=== PATIENT | female | born 1990 | race Caucasian/White ===

== ENCOUNTER 2018-02-16 13:58 | Observation (INO) | payer OTHER ==
[2018-02-16 14:15] VITALS: BP 106/59; PULSE 80
== END 2018-02-16 14:55 | disposition home or self-care (01) ==
LOC: OB 13:58
PROVIDERS: ADMIT Family Medicine; ATTEND Family Medicine
DX: Z34.82 Encounter for supervision of other normal pregnancy, second trimester (principal)
CPT/HCPCS: G0378

== ENCOUNTER 2018-03-20 13:00 | Observation (INO) | payer OTHER ==
--- NOTE | 2018-03-20 14:27 | XRAY ---
Indication: Evaluate LATASHA. Limited OB ultrasound performed to evaluate LATASHA. Single viable intrauterine with heart rate 123 BPM. Four-quadrant LATASHA is 17.9 cm, previously 15.4 cm on January 05, 2018.
[2018-03-20 15:34] VITALS: BP 116/58; PULSE 93
== END 2018-03-20 15:30 | disposition home or self-care (01) ==
LOC: OB 13:00
PROVIDERS: ADMIT Family Medicine; ATTEND Family Medicine
DX: Z34.83 Encounter for supervision of other normal pregnancy, third trimester (principal)
CPT/HCPCS: 76815; G0378; 59025

== ENCOUNTER 2018-04-07 06:06 | Observation (INO) | payer OTHER ==
[2018-04-07 11:53] VITALS: BP 102/64; PULSE 104
--- NOTE | 2018-04-07 12:13 | XRAY ---
Indication: Size greater than dates. 2-dimensional OB ultrasound performed. Comparison: January 05, 2018. Again single viable intrauterine now in cephalic presentation. heart rate 123 bpm. Normal three-vessel cord and cord insertion previously documented. Visualized stomach and bladder appear unremarkable. Again anterior fundal placenta without abruption/previa. BPD measures 8.69 cm corresponding to 35 weeks 1 day. HC measures 30.66 cm corresponding to 34 weeks 1 day. AC measures 30.45 cm corresponding to 34 weeks 3 days. FL measures 6.63 cm corresponding to 34 weeks 1 day. Estimated weight 5 lbs. 5 oz., +/-13 ounces. Approximately 63 percentile. LATASHA is 17.1 cm. Impression: Again single viable intrauterine with mean gestational age 34 weeks 3 days. Normal progression of . No new/acute findings.
== END 2018-04-07 12:40 | disposition home or self-care (01) ==
LOC: EDSTATUS 11:08 → OB 11:09
PROVIDERS: ADMIT Family Medicine; ATTEND Family Medicine
DX: Z34.83 Encounter for supervision of other normal pregnancy, third trimester (principal)
CPT/HCPCS: 76805; G0378; 59025

== ENCOUNTER 2018-05-05 14:12 | Observation (INO) | payer OTHER ==
[2018-05-05 14:53] LABS: Hematocrit 40.8 % (35-47); Hemoglobin 13.9 gm/dl (12.0-16.0); Mean Cell Volume 91.9 fl (78-100); Mean Corpuscular Hemoglobin 31.3 pg (26-32); Mean Corpuscular Hgb Concent. 34.1 g/dl (32-36); Mean Platelet Volume 12.9 fl (6-9.5); Platelet Count 183 K/mm3 (150-450); Red Blood Count 4.44 M/mm3 (4.1-5.4); Red Cell Distribution Width 13.4 % (11.5-14.0); White Blood Count 12.1 K/mm3 (4.0-10.5)
[2018-05-05 15:05] LABS: Granulocyte Absolute (ANC) 9.13 (1.4-6.9)
[2018-05-05 15:05] LABS: ALBUMIN 3.5 g/dL (3.5-5.0); ALKALINE PHOSPHATASE 186 U/L (38-126); ANION GAP 12.3 MEQ/L (5-15); BLOOD UREA NITROGEN 10 mg/dL (7-17); CHLORIDE 108 mmol/L (98-107); Calcium 9.4 mg/dL (8.4-10.2); Carbon Dioxide 21 mmol/L (22-30); Creatinine 1 0.41 mg/dL (0.52-1.04); Glucose 84 mg/dL (74-106); Potassium 3.8 mmol/L (3.5-5.1); SGOT/AST 22 U/L (14-36); SGPT/ALT 20 U/L (0-35); SODIUM 137 mmol/L (137-145); Total Protein 6.8 g/dL (6.3-8.2)
[2018-05-05 15:08] VITALS: BP 119/61; PULSE 98
[2018-05-05 16:31] LABS: BAND 2 % (0.0-2.0); Lymphocytes 15 % (24-44); Monocyte 3 % (0.0-12.0); Neutrophils 80 % (36.0-66.0); Platelet Estimate NORMAL (NORMAL); Total Cells Counted 100
== END 2018-05-05 15:55 | disposition home or self-care (01) ==
LOC: OB 14:12
PROVIDERS: ADMIT Family Medicine; ATTEND Family Medicine
DX: Z34.83 Encounter for supervision of other normal pregnancy, third trimester (principal)
CPT/HCPCS: 36415; 59025; 80053; 81003; 84550; 85025; G0378

== ENCOUNTER 2018-05-14 18:27 | Observation (INO) | payer OTHER ==
[2018-05-14] MEDS ORDERED: BRETHINE 1 MG/ML SQ PRN (18:36)
[2018-05-14 18:54] LABS: BASOPHIL % 0.2 % (0.0-0.4); Basophil (Absolute #) 0.02 (0-0.4); Eosinophil % 3.3 % (0.00-5.0); Eosinophil (Absolute #) 0.34 (0-0.5); Granulocyte Absolute (ANC) 7.84 (1.4-6.9); Granulocytes % 75.1 % (36.0-66.0); Hematocrit 38.3 % (35-47); Lymphocyte (Absolute #) 1.51 (1.0-4.6); Lymphocytes % 14.5 % (24.0-44.0); Mean Cell Volume 93.2 fl (78-100); Mean Corpuscular Hemoglobin 31.6 pg (26-32); Mean Corpuscular Hgb Concent. 33.9 g/dl (32-36); Mean Platelet Volume 13.2 fl (6-9.5); Monocyte (Absolute #) 0.72 (0.0-1.3); Monocytes % 6.9 % (0.0-12.0); Platelet Count 159 K/mm3 (150-450); Red Blood Count 4.11 M/mm3 (4.1-5.4); Red Cell Distribution Width 13.4 % (11.5-14.0); White Blood Count 10.4 K/mm3 (4.0-10.5)
[2018-05-14] MEDS ORDERED: PITOCIN 30 UNITS/ LR 500 ML 500 ML IV SCH (19:00)
[2018-05-14 21:54] LABS: Amphetamine,Urine NEGATIVE (NEGATIVE); Barbiturate,Urine NEGATIVE (NEGATIVE); Benzodiazepine,Urine NEGATIVE (NEGATIVE); Cocaine,Urine NEGATIVE (NEGATIVE); Methadone,Urine NEGATIVE (NEGATIVE); Opiate,Urine NEGATIVE (NEGATIVE); PCP,Urine NEGATIVE (NEGATIVE); THC,Urine NEGATIVE (NEGATIVE)
[2018-05-14] MEDS ORDERED: Cervidil 10 MG VAG SCH (22:00)
[2018-05-15] MEDS ORDERED: OMNIPEN 2 GM / NACL 100ML 100 ML IV ONE (08:08)
[2018-05-15] MEDS ORDERED: Lactated Ringers 1,000 ML IV SCH (08:30)
[2018-05-15] MEDS ORDERED: PITOCIN 30 UNITS/ LR 500 ML 500 ML IV SCH ×2 (08:30)
[2018-05-15] MEDS: OMNIPEN 1GM / NaCl 100ML 100 ML IV SCH ×2 (12:03→16:02)
[2018-05-15 20:52] VITALS: BP 108/59; PULSE 86
== END 2018-05-15 20:20 | disposition home or self-care (01) ==
LOC: OB 18:27
PROVIDERS: ADMIT Family Medicine; ATTEND Family Medicine
DX: O61.0 Failed medical induction of labor (principal); Z3A.39 39 weeks gestation of pregnancy
CPT/HCPCS: 36415; 80307; 85025; G0378; J0290; J2590

== ENCOUNTER 2018-05-18 13:07 | Inpatient (IN) | payer OTHER ==
[2018-05-18] MEDS ORDERED: OMNIPEN 2 GM / NACL 100ML 100 ML IV ONE (14:39)
[2018-05-18] MEDS ORDERED: PITOCIN 30 UNITS/ LR 500 ML 500 ML IV SCH ×2 (15:00→20:00)
[2018-05-18 15:07] LABS: BASOPHIL % 0.2 % (0.0-0.4); Basophil (Absolute #) 0.02 (0-0.4); Eosinophil % 4.5 % (0.00-5.0); Eosinophil (Absolute #) 0.47 (0-0.5); Granulocytes % 75.9 % (36.0-66.0); Hematocrit 38.9 % (35-47); Hemoglobin 13.3 gm/dl (12.0-16.0); Lymphocytes % 13.3 % (24.0-44.0); Mean Cell Volume 92.8 fl (78-100); Mean Corpuscular Hemoglobin 31.7 pg (26-32); Mean Corpuscular Hgb Concent. 34.2 g/dl (32-36); Mean Platelet Volume 13.6 fl (6-9.5); Monocyte (Absolute #) 0.64 (0.0-1.3); Monocytes % 6.1 % (0.0-12.0); Platelet Count 155 K/mm3 (150-450); Red Blood Count 4.19 M/mm3 (4.1-5.4); Red Cell Distribution Width 13.6 % (11.5-14.0); White Blood Count 10.5 K/mm3 (4.0-10.5)
[2018-05-18 15:23] LABS: Amphetamine,Urine NEGATIVE (NEGATIVE); Barbiturate,Urine NEGATIVE (NEGATIVE); Benzodiazepine,Urine NEGATIVE (NEGATIVE); Cocaine,Urine NEGATIVE (NEGATIVE); Methadone,Urine NEGATIVE (NEGATIVE); Opiate,Urine NEGATIVE (NEGATIVE); PCP,Urine NEGATIVE (NEGATIVE); THC,Urine NEGATIVE (NEGATIVE)
[2018-05-18 15:34] LABS: ALBUMIN 3.2 g/dL (3.5-5.0); ALKALINE PHOSPHATASE 178 U/L (38-126); ANION GAP 12.5 MEQ/L (5-15); BLOOD UREA NITROGEN 8 mg/dL (7-17); CHLORIDE 109 mmol/L (98-107); Calcium 8.7 mg/dL (8.4-10.2); Carbon Dioxide 21 mmol/L (22-30); Creatinine 1 0.39 mg/dL (0.52-1.04); Glucose 115 mg/dL (74-106); SGOT/AST 19 U/L (14-36); SGPT/ALT 14 U/L (0-35); SODIUM 139 mmol/L (137-145); Total Protein 6.5 g/dL (6.3-8.2)
[2018-05-18] MEDS: Lactated Ringers 1,000 ML IV SCH ×2 (15:44→23:57)
[2018-05-18] MEDS ORDERED: BRETHINE 1 MG/ML SQ PRN (18:38)
[2018-05-18] MEDS: OMNIPEN 1GM / NaCl 100ML 100 ML IV SCH ×2 (19:47→23:58)
[2018-05-19] MEDS: Lactated Ringers 1,000 ML IV SCH ×4 (01:45→14:21)
[2018-05-19] MEDS: Tums EX 750 MG PO SCH ×2 (01:59→22:55)
[2018-05-19] MEDS: OMNIPEN 1GM / NaCl 100ML 100 ML IV SCH ×2 (03:58→14:21)
[2018-05-19] MEDS ORDERED: Lactated Ringers 1,000 ML IV SCH (04:00)
[2018-05-19] MEDS ORDERED: Pepcid 20 MG VIAL IV SCH (04:00)
[2018-05-19] MEDS ORDERED: BICITRA 30 ML CUP PO SCH (04:00)
[2018-05-19] MEDS ORDERED: Reglan 10 MG/2 ML IV SCH (04:00)
[2018-05-19 04:18] LABS: Hematocrit 37.7 % (35-47); Hemoglobin 12.6 gm/dl (12.0-16.0); Mean Cell Volume 93.3 fl (78-100); Mean Corpuscular Hgb Concent. 33.4 g/dl (32-36); Mean Platelet Volume 13.4 fl (6-9.5); Platelet Count 140 K/mm3 (150-450); Red Blood Count 4.04 M/mm3 (4.1-5.4); Red Cell Distribution Width 13.7 % (11.5-14.0); White Blood Count 14.1 K/mm3 (4.0-10.5)
[2018-05-19 04:37] LABS: INR 0.99 (0.8-3.0)
[2018-05-19 04:40] LABS: PTT 23.8 SECONDS (25.3-37.0)
[2018-05-19 04:43] LABS: Mean Corpuscular Hemoglobin 31.1 pg (26-32)
[2018-05-19 05:14] LABS: ABO TYPING O; Antibody Screen NEGATIVE (NEGATIVE); RH TYPING POSITIVE
[2018-05-19 05:36] LABS: Appearance CLEAR (CLEAR); Bilirubin NEGATIVE (NEGATIVE); Blood TRACE NON-HEM Ery/ul (0-5); Glucose NEGATIVE (NEGATIVE); Ketones TRACE (NEGATIVE); Leukocyte Esterase TRACE (NEGATIVE); Nitrite NEGATIVE (NEGATIVE); Protein,Urine Dip NEGATIVE (Negative); Urobilinogen NORMAL mg/dL (0-1)
[2018-05-19 05:37] LABS: Epithelial Cells MANY /HPF (FEW)
[2018-05-19] MEDS ORDERED: CEFAZOLIN 2 GM-D5W BAG** 2 GM/50 ML ML IV SCH (08:00)
[2018-05-19] MEDS ORDERED: HOLD NARCOTIC ANALGESICS AND SEDATIVES X24 HR MC PRN (09:30)
[2018-05-19] MEDS ORDERED: Naropin 0.5% 30 ML VIAL IJ ONE (09:39)
[2018-05-19] MEDS ORDERED: Epinephrine Preservative Free 1 MG/ML IJ ONE (09:39)
[2018-05-19] MEDS ORDERED: MARCAINE 0.5%-EPI 1:200,000 VL IJ ONE (09:39)
[2018-05-19] MEDS ORDERED: Pitocin 10 UNITS/ML IV ONE (09:39)
[2018-05-19] MEDS ORDERED: PHENYLEPHRINE HCL IJ ONE (09:39)
--- NOTE | 2018-05-19 10:43 | OP ---
SURGERY DATE/TIME: 05/19/2018 0858 PREOPERATIVE DIAGNOSES: 1) intolerance of labor. 2) Preeclampsia. 3) Term intrauterine . POSTOPERATIVE DIAGNOSES: 1) intolerance of labor. 2) Preeclampsia. 3) Term intrauterine . PROCEDURE: Primary low transverse section. SURGEON: Phuc Jenkins M.D. ANESTHESIA: Spinal by Brennon Mcintosh CRNA. ESTIMATED BLOOD LOSS: 400 cc. IV FLUIDS: 1600 cc of Crystalloid. URINE OUTPUT: 150 cc clear straw-colored urine. SPECIMEN: Placenta was sent for pathology. DESCRIPTION OF PROCEDURE: After informed, written consent was obtained, the patient was taken to the OR. She underwent spinal anesthesia, prepped and draped in the usual sterile fashion. After adequate level of anesthesia was assessed, a low transverse skin incision was made by knife and carried down through the subcutaneous fat to the level of the fascia. The fascia was nicked on both sides of the midline and extended in horizontal fashion using curved Rachel scissors. The superior free edge of the fascia was grasped with Aram clamps and the underlying rectus muscles were dissected free. The same was repeated inferiorly. The peritoneal cavity was opened and extended in horizontal fashion and a bladder blade was created and reflected over the lower uterine segment. Horizontal uterine incision was made by knife and carried down to the level of the amniotic membranes which were carefully artificially ruptured. A viable female was delivered with cord around the shoulder x1. She had a strong cry immediately upon delivery. The cord was clamped and cut. Dr. Jenny randolph, scrubbed to attend to the baby. The placenta was manually extracted from the uterine cavity. The uterus was exteriorized. The uterine cavity was wiped free of blood and clot with a moist lap sponge. The uterine incision was closed with #1 chromic in a running locked fashion. Good closure and good hemostasis were achieved. Posterior cul-de-sac was wiped free of blood and clot with moist lap sponge. The uterus was returned to the peritoneal cavity. The lateral gutters were wiped free of blood and clot. Again the uterine incision was carefully inspected and noted to be hemostatic. Next, the fascia was closed with 0 Vicryl in a running fashion with good closure and good hemostasis were achieved. The subcutaneous fat was irrigated with warm, sterile saline and the space was closed with 3-0 Vicryl in a running fashion with good closure to approximate the deep subcutaneous fat tissue. Finally, the skin layer was closed with 4-0 undyed Vicryl in a running subcuticular fashion. Steri-Strips and occlusive dressing were placed over the incision and the patient was transferred to the recovery room in excellent condition.
[2018-05-19 11:01] LABS: Appearance CLEAR (CLEAR); Bilirubin NEGATIVE (NEGATIVE); Blood NEGATIVE Ery/ul (0-5); Glucose NEGATIVE (NEGATIVE); Ketones NEGATIVE (NEGATIVE); Leukocyte Esterase NEGATIVE (NEGATIVE); Nitrite NEGATIVE (NEGATIVE); Protein,Urine Dip NEGATIVE (Negative); Specific Gravity 1.005 (1.005-1.025); Urobilinogen NORMAL mg/dL (0-1)
[2018-05-19] MEDS ORDERED: Anucort-HC SUPPOSITORY PR PRN (11:51)
[2018-05-19] MEDS ORDERED: CLARITIN 10 MG PO PRN (11:51)
[2018-05-19] MEDS ORDERED: CORTISONE 1% CREAM TP PRN (11:51)
[2018-05-19] MEDS ORDERED: LANSINOH 40 GM TOP PRN (11:51)
[2018-05-19] MEDS ORDERED: Phenergan 25 MG INJ IM PRN (11:51)
[2018-05-19] MEDS ORDERED: DEMEROL 50 MG IV PRN (11:51)
[2018-05-19] MEDS ORDERED: Dulcolax 10 MG SUPP PR PRN (11:51)
[2018-05-19] MEDS ORDERED: Dermoplast Spray TP PRN (11:51)
[2018-05-19] MEDS ORDERED: Narcan 0.4 MG/ML IV PRN (11:51)
[2018-05-19] MEDS ORDERED: TYLENOL EXTRA STRENGTH 500 MG PO PRN (11:51)
[2018-05-19] MEDS ORDERED: TUCKS TP PRN (11:51)
[2018-05-19] MEDS ORDERED: BENADRYL 50 MG/ML IV PRN (11:51)
[2018-05-19] MEDS ORDERED: Zofran 4 MG/2 ML VIAL IV PRN (11:51)
[2018-05-19] MEDS ORDERED: Nubain 10 MG/ML IV PRN (11:51)
[2018-05-19] MEDS ORDERED: Mylicon 80MG PO PRN (11:51)
[2018-05-19] MEDS ORDERED: MORPHINE SULFATE 2 MG INJ IV PRN (11:51)
[2018-05-19] MEDS ORDERED: Dextrose 5%-Lr IV Solution 1000 ML 1,000 ML IV SCH (12:00)
[2018-05-19] MEDS: MOTRIN 400 MG PO PRN (22:09)
[2018-05-19] MEDS: Colace 100 MG PO SCH (22:09)
[2018-05-19] MEDS: PERCOCET TABLET 5/325MG PO PRN (22:09)
[2018-05-20] MEDS: PERCOCET TABLET 5/325MG PO PRN ×2 (02:17→06:26)
[2018-05-20] MEDS: MOTRIN 400 MG PO PRN ×3 (05:20→20:53)
[2018-05-20 05:57] LABS: BASOPHIL % 0.2 % (0.0-0.4); Basophil (Absolute #) 0.02 (0-0.4); Eosinophil % 3.1 % (0.00-5.0); Eosinophil (Absolute #) 0.31 (0-0.5); Granulocyte Absolute (ANC) 7.52 (1.4-6.9); Hematocrit 31.2 % (35-47); Hemoglobin 10.5 gm/dl (12.0-16.0); Lymphocyte (Absolute #) 1.51 (1.0-4.6); Lymphocytes % 14.9 % (24.0-44.0); Mean Cell Volume 94.8 fl (78-100); Mean Corpuscular Hemoglobin 31.9 pg (26-32); Mean Corpuscular Hgb Concent. 33.7 g/dl (32-36); Mean Platelet Volume 13.6 fl (6-9.5); Monocyte (Absolute #) 0.79 (0.0-1.3); Monocytes % 7.8 % (0.0-12.0); Platelet Count 123 K/mm3 (150-450); Red Blood Count 3.29 M/mm3 (4.1-5.4); Red Cell Distribution Width 13.6 % (11.5-14.0); White Blood Count 10.2 K/mm3 (4.0-10.5)
[2018-05-20 07:21] VITALS: O2SAT 98
[2018-05-20] MEDS ORDERED: Astramorph-Pf 5 MG/10 ML IJ ONE (09:45)
[2018-05-20] MEDS: NORCO 5/325 MG PO PRN ×3 (11:25→20:52)
[2018-05-20] MEDS: Colace 100 MG PO SCH ×2 (11:25→20:52)
[2018-05-20] MEDS: THERAGRAN MULTIVITAMIN PO SCH (11:25)
[2018-05-20] MEDS: FERREX 150 PO SCH (11:25)
[2018-05-20] MEDS: Tums EX 750 MG PO SCH (11:30)
[2018-05-20] MEDS ORDERED: Ambien 10 MG PO PRN (11:51)
[2018-05-20] MEDS ORDERED: DEMEROL 75 MG IM PRN (11:51)
[2018-05-21] MEDS: NORCO 5/325 MG PO PRN ×4 (00:59→16:22)
[2018-05-21] MEDS: MOTRIN 400 MG PO PRN ×2 (04:12→12:58)
--- NOTE | 2018-05-21 08:34 | PCM.DS ---
Discharge Summary Date of Admission: 05/18/18 14:32 Admitting Physician: GIOVANNI ORTIZ Consults: Consults on Case 05/19/18 03:50 Notify Physician OF ADMISSION 05/19/18 03:53 Notify Anesthesia Provider ROUTINE 05/19/18 11:51 Notify Anesthesia Provider PRN Primary Care Provider: GIOVANNI ORTIZ Allergies Allergies No Known Drug Allergies Allergy (Unverified 03/27/13 02:17) Hospital Summary - Hospital Course Hospital Course: Pt came in at 39w 4d for IOL; tried to induce at 39 wks due to pre- eclampsia (however BP very stable, never elevated). Failed first induction so returned 3d later to induce again. Failed this induction, failure to progress and intolerance of labor, so had without complication. Bleeding is decreased. Has been slow to get up but was out of bed last night. She is planning to go home today. - Vitals & Intake/Output Vital Signs: Vital Signs Temperature 98.3 F 05/21/18 02:00 Pulse Rate 90 05/21/18 02:00 Respiratory Rate 18 05/21/18 02:00 Blood Pressure 107/61 05/21/18 02:00 O2 Sat by Pulse Oximetry 98 05/20/18 08:00 Oxygen-Last Documented O2 Percentage 100% Intake & Output: Intake & Output 05/18/18 05/19/18 05/20/18 05/21/18 11:59 11:59 11:59 11:59 Intake Total 5479 3521 1000 Output Total 4 2450 Balance 5475 1071 1000 Weight 112.945 kg - Lab Result Diagrams: 05/20/18 05:05 05/18/18 14:50 Micro Results-Entire Visit: Microbiology 05/19/18 09:12 Urine Culture - Final Urine, Catheterized NO GROWTH Discharge Exam General Appearance: no apparent distress, alert Neurologic Exam: oriented x 3, cooperative Skin Exam: normal color, warm, dry, No rash Respiratory Exam: normal breath sounds, lungs clear, No crackles/rales, No rhonchi, No wheezing Cardiovascular Exam: regular rate/rhythm, normal heart sounds, No murmur Gastrointestinal/Abdomen Exam: soft, other (fundus firm under umbilicus. wound c /d/i), No tenderness Extremity Exam: pedal edema, swelling (2+ edema LE bilat) Final Diagnosis/Problem List - Final Discharge Diagnosis/Problem (1) delivery delivered Current Visit: Yes Status: Acute Assessment & Plan: POD #2 today, doing well.Home today. (2) Pre-eclampsia Current Visit: Yes Status: Acute Assessment & Plan: BP have been great. Continue to watch periodically at home. Report any sx karl. - Discharge Disposition: Home, Self-Care Condition: Good Prescriptions: New Ferrous Sulfate 325 mg PO DAILY #30 tablet Ibuprofen 800 mg PO TID PRN PRN #35 tablet PRN Reason: Pain Hydrocodone Bit/Acetaminophen [[place] 5-325 Tablet] 1 each PO Q4H PRN #30 tablet MDD 6 PRN Reason: Severe Pain No Action Pnv No.95/Ferrous Fum/Folic AC [ Vitamins Tablet] 1 tab PO DAILY Docusate Sodium [Dok] 100 mg PO BID Follow up with: GIOVANNI ORTIZ [Primary Care Provider] - 1 Week
[2018-05-21] MEDS: FERREX 150 PO SCH (08:52)
[2018-05-21] MEDS: Colace 100 MG PO SCH (08:54)
[2018-05-21] MEDS: THERAGRAN MULTIVITAMIN PO SCH (09:51)
[2018-05-21 18:13] VITALS: BP 124/59; PULSE 97
== END 2018-05-21 18:00 | disposition home or self-care (01) | DRG 766 ==
LOC: OB 13:07 → OBSVTOIN 14:32
PROVIDERS: ADMIT Family Medicine; ATTEND Family Medicine
PROC: 10D00Z1 Extraction of Products of Conception, Low, Open Approach (ICD-10-PCS; principal; 2018-05-19)
DX: O77.9 Labor and delivery complicated by fetal stress, unspecified (principal); O14.94 Unspecified pre-eclampsia, complicating childbirth; Z3A.39 39 weeks gestation of pregnancy; Z37.0 Single live birth
CPT/HCPCS: 36415; 62322; 64486; 76942; 80053; 80307; 81000; 81002; 84550; 85025; 85027; 85610; 85730; 86850; 86900; 86901; 87086; 88307; 94799; C1781; G0378; J0171; J0290; J0690; J2274; J2370; J2590; J2795; L0625; A9270-GY

== ENCOUNTER 2019-02-09 18:58 | Emergency (ER) | payer OTHER ==
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
[2019-02-09] MEDS ORDERED: PERCOCET TABLET 5/325MG PO STA (20:29)
[2019-02-09] MEDS ORDERED: PERCOCET TABLET 5/325MG ONE (20:34)
[2019-02-09 20:52] VITALS: BP 112/69; PULSE 84; O2SAT 97
--- NOTE | 2019-02-10 09:00 | XRAY ---
Indication: Headache. Intermittent dizziness and visual changes. Multiple contiguous axial images obtained through the head without contrast. Comparison: January 01, 2012. Again normal appearing brain parenchyma, ventricles, and bony calvarium. Visualized paranasal sinuses and mastoid air cells are clear. Impression: Normal CT head without contrast exam. CT DI 52.08
== END 2019-02-09 20:50 | disposition home or self-care (01) ==
LOC: ED 18:58
DX: R51 Headache (principal); S00.93XD Contusion of unspecified part of head, subsequent encounter
CPT/HCPCS: 70450; 99283; A9270-GY